=== PATIENT | female | born 1955 | race Caucasian/White ===

== ENCOUNTER 2020-07-05 09:04 | Outpatient (REF) | payer BC, SELFPAY ==
--- NOTE | ~2020-07-05 | MM_ITS ---
EXAMINATION: MM SCREENING DIGITAL BREAST TOMOSYNTHESIS, BILATERAL CLINICAL INFORMATION: Screening. Asymptomatic. The lifetime risk of breast cancer based on the Tyrer-Cuzick Model is 10%. COMPARISON: Mammography: 08/02/2018, 07/30/2018, 07/12/2017, 06/27/2016 TECHNIQUE: Digital breast tomosynthesis is performed in both the craniocaudal and mediolateral oblique views along with computer-aided detection (CAD). Synthesized 2D images are generated from the tomosynthesis. Additional right CC view is provided. FINDINGS: There are scattered areas of fibroglandular density (ACR BI-RADS breast composition Category b). There are no significant masses, abnormal calcifications, or other abnormalities. Small circumscribed nodule mid 9:00 right breast stable from prior studies. Skin contours are smooth. MM/MM tomosynthesis screening BI IMPRESSION: No mammographic evidence of malignancy. ASSESSMENT: BI-RADS 2: Benign RECOMMENDATION: Routine annual mammography screening. This patient's information was entered into a reminder system with a target due date for their next mammogram.
== END 2020-07-05 09:05 | disposition home or self-care (01) ==
LOC: HO.MAMMO 09:04
PROVIDERS: Visit Provider Internal Medicine
DX: Z12.31 Encounter for screening mammogram for malignant neoplasm of breast (principal)
CPT/HCPCS: 77063; 77067

== ENCOUNTER 2021-02-23 06:56 | Outpatient (REF) | payer MEDICARE, SELFPAY ==
[2021-02-23 11:24] LABS: Appearance Urine HAZY; Color Urine STRAW; Glucose Urine UA NEG (NEG); Leukocyte Esterase Urine 1+ (NEG); Nitrite Urine NEG (NEG); PH 5.5 (5.0-8.0); Urine Blood NEG (NEG); Urine Ketones NEG (NEG); Urine Protein NEG (NEG-TRACE)
[2021-02-23 11:27] LABS: MANUAL DIFF FLAG NO
[2021-02-23 11:29] LABS: Basophils Percent Auto 0.4 % (0-2); Eosinophils Absolute Auto 0.1 X10*3/uL (0.0-0.4); Eosinophils Percent Auto 2.6 % (0-4); Hematocrit 42.9 % (37.0-47.0); Hemoglobin 14.1 g/dl (12.0-16.0); Imm Gran Abs Auto 0.01 X10*3/uL (0.00-0.03); Imm Gran Pct Auto 0.2 % (0.0-0.4); Lymphocytes Absolute Auto 1.8 X10*3/uL (1.2-4.9); Lymphocytes Percent Auto 39.3 % (20-40); Mean Corpuscular HGB Conc 32.9 g/dl (31.0-35.0); Mean Corpuscular Hemoglobin 31.2 pg (27.0-33.0); Mean Corpuscular Volume 94.9 fL (80.0-98.0); Mean Platelet Volume 10.1 fL (9.4-12.3); Monocytes Absolute Auto 0.5 X10*3/uL (0.1-1.2); Monocytes Percent Auto 10.7 % (2-11); Neutrophils Absolute Auto 2.2 x10*3/uL (2.0-8.3); Neutrophils Percent Auto 46.8 % (45-73); Platelet Count 239 X10*3/uL (160-400); Red Blood Count 4.52 X10*6/uL (4.20-5.50); Red Cell Distribution Width 13.5 % (11.0-16.0); White Blood Count 4.7 X10*3/uL (4.8-10.8)
[2021-02-23 11:39] LABS: Bacteria Urine TRACE /LPF; RBC Urine 0 /HPF (0); Squamous Epithelial Cell Urine 2+ /LPF
[2021-02-23 12:07] LABS: Thyroid Stimulating Hormone 2.29 uIU/mL (0.32-4.0); Vitamin D 25-OH Total 26.3 ng/mL (>30)
[2021-02-23 12:16] LABS: Alanine Aminotransferase 22 U/L (0-31); Albumin Level 4.3 g/dL (3.5-5.0); Alkaline Phosphatase 91 U/L (39-117); Anion Gap 10 (12-20); Aspartate Amino Transferase 19 U/L (5-31); Bilirubin Total 0.4 mg/dL (0.0-1.0); Blood Urea Nitrogen 19 mg/dL (9-16); Calcium 9.8 mg/dL (8.4-10.2); Carbon Dioxide 27 mmol/L (22-29); Chloride 109 mmol/L (96-108); Cholesterol 245 mg/dL; Estimated Glomerular Filt Rate > 60; Glucose Fasting 82 mg/dL (60-99); HDL Cholesterol 85 mg/dL; LDL Cholesterol Calculated 150 mg/dl; Potassium 4.8 mmol/L (3.3-5.1); Sodium 141 mmol/L (135-145); Total Protein 6.9 g/dL (6.5-8.0); Triglycerides 53 mg/dL
== END 2021-02-23 06:57 | disposition home or self-care (01) ==
LOC: HO.HMGCLDS 06:56
PROVIDERS: PCP Internal Medicine; Visit Provider Internal Medicine
DX: Z00.00 Encounter for general adult medical examination without abnormal findings (principal); I10 Essential (primary) hypertension
CPT/HCPCS: 36415; 80053; 80061; 81001; 82306; 84443; 85025

== ENCOUNTER 2021-07-08 09:27 | Outpatient (REF) | payer MEDICARE, SELFPAY ==
--- NOTE | ~2021-07-08 | MM_ITS ---
EXAMINATION: MM SCREENING DIGITAL BREAST TOMOSYNTHESIS, BILATERAL CLINICAL INFORMATION: Screening. Asymptomatic. Family history breast cancer, mother. The lifetime risk of breast cancer based on the Tyrer-Cuzick Model is 10%. COMPARISON: Mammography: 07/05/2020, 08/02/2018, 07/30/2018 TECHNIQUE: Digital breast tomosynthesis is performed in both the craniocaudal and mediolateral oblique views along with computer-aided detection (CAD). Synthesized 2D images are generated from the tomosynthesis. FINDINGS: There are scattered areas of fibroglandular density (ACR BI-RADS breast composition Category b). There are no significant masses, abnormal calcifications, or other abnormalities. Parenchymal pattern is similar to prior studies. No significant changes. No developing density or architectural abnormality. MM/MM tomosynthesis screening BI IMPRESSION: No mammographic evidence of malignancy. ASSESSMENT: BI-RADS 1: Negative RECOMMENDATION: Routine annual mammography screening. This patient's information was entered into a reminder system with a target due date for their next mammogram.
== END 2021-07-08 09:28 | disposition home or self-care (01) ==
LOC: HO.MAMMO 09:27
PROVIDERS: PCP Internal Medicine; Visit Provider Internal Medicine
DX: Z12.31 Encounter for screening mammogram for malignant neoplasm of breast (principal)
CPT/HCPCS: 77063; 77067

== ENCOUNTER 2021-12-10 10:46 | Outpatient (REF) | payer MEDICARE, SELFPAY ==
[2021-12-10 14:31] LABS: Influenza A PCR NEGATIVE (Negative); Influenza B PCR NEGATIVE (Negative); Resp Syncy Virus RNA Qual PCR NEGATIVE (Negative); SARS COV2 PCR INHOUSE NEGATIVE (Negative)
== END 2021-12-10 10:47 | disposition home or self-care (01) ==
LOC: HO.LAB 10:46
PROVIDERS: Visit Provider Nurse Practitioner Acute Care
DX: R68.89 Other general symptoms and signs (principal); Z20.822 Contact with and (suspected) exposure to COVID-19
CPT/HCPCS: 0241U

== ENCOUNTER 2022-04-07 06:56 | Outpatient (REF) | payer MEDICARE, SELFPAY ==
[2022-04-07 11:43] LABS: MANUAL DIFF FLAG NO
[2022-04-07 12:04] LABS: Basophils Percent Auto 0.9 % (0-2); Eosinophils Absolute Auto 0.1 X10*3/uL (0.0-0.4); Eosinophils Percent Auto 2.6 % (0-4); Hematocrit 43.1 % (37.0-47.0); Imm Gran Abs Auto 0.01 X10*3/uL (0.00-0.03); Imm Gran Pct Auto 0.2 % (0.0-0.4); Lymphocytes Absolute Auto 1.6 X10*3/uL (1.2-4.9); Lymphocytes Percent Auto 38.5 % (20-40); Mean Corpuscular HGB Conc 32.5 g/dl (31.0-35.0); Mean Corpuscular Hemoglobin 30.4 pg (27.0-33.0); Mean Corpuscular Volume 93.5 fL (80.0-98.0); Mean Platelet Volume 10.2 fL (9.4-12.3); Monocytes Absolute Auto 0.5 X10*3/uL (0.1-1.2); Monocytes Percent Auto 10.8 % (2-11); Platelet Count 222 X10*3/uL (160-400); Red Blood Count 4.61 X10*6/uL (4.20-5.50); Red Cell Distribution Width 13.2 % (11.0-16.0); White Blood Count 4.3 X10*3/uL (4.8-10.8)
[2022-04-07 12:31] LABS: Alanine Aminotransferase 13 U/L (0-31); Albumin Level 4.2 g/dL (3.5-5.0); Alkaline Phosphatase 94 U/L (39-117); Anion Gap 12 (12-20); Aspartate Amino Transferase 18 U/L (5-31); Bilirubin Total 0.5 mg/dL (0.0-1.0); Blood Urea Nitrogen 14 mg/dL (9-16); Calcium 9.5 mg/dL (8.4-10.2); Carbon Dioxide 25 mmol/L (22-29); Chloride 108 mmol/L (96-108); Cholesterol 247 mg/dL; Estimated Glomerular Filt Rate > 60; Glucose Fasting 85 mg/dL (60-99); HDL Cholesterol 92 mg/dL; LDL Cholesterol Calculated 144 mg/dl; Potassium 4.4 mmol/L (3.3-5.1); Sodium 141 mmol/L (135-145); Total Protein 6.8 g/dL (6.5-8.0); Triglycerides 57 mg/dL
[2022-04-07 12:56] LABS: Thyroid Stimulating Hormone 2.54 uIU/mL (0.32-4.0); Vitamin D 25-OH Total 30.9 ng/mL (>30)
== END 2022-04-07 06:57 | disposition home or self-care (01) ==
LOC: HO.HMGCLDS 06:56
PROVIDERS: PCP Internal Medicine; Visit Provider Internal Medicine
DX: I10 Essential (primary) hypertension (principal); E55.9 Vitamin D deficiency, unspecified
CPT/HCPCS: 36415; 80053; 80061; 82306; 84443; 85025

== ENCOUNTER 2022-05-17 10:23 | Outpatient (REF) | payer MEDICARE, SELFPAY ==
--- NOTE | ~2022-05-17 | MM_ITS ---
EXAMINATION: MM DIAGNOSTIC DIGITAL BREAST TOMOSYNTHESIS, BILATERAL US TARGETED BREAST, RIGHT CLINICAL INFORMATION: Right breast lump. The lifetime risk of breast cancer based on the Tyrer-Cuzick Model is 9%. COMPARISON: Mammography: 07/08/2021 and studies dating back to 06/04/2015 TECHNIQUE: Digital breast tomosynthesis is performed in both the craniocaudal and mediolateral oblique views along with computer-aided detection (CAD). Synthesized 2D images are generated from the tomosynthesis. Targeted right breast ultrasound. FINDINGS: There are scattered areas of fibroglandular density (ACR BI-RADS breast composition Category b). There are no significant masses, abnormal calcifications, or other abnormalities. Targeted right breast ultrasound did not demonstrate any abnormal cystic or solid masses. No region of abnormal distal sound shadowing appreciated. No edematous change within the parenchyma. Results are discussed with the patient at time of visit. MM/MM tomosynthesis diagnostic BI IMPRESSION: There are no significant changes from prior study. No specific mammographic or ultrasound findings to suggest malignancy. ASSESSMENT: BI-RADS 1: Negative RECOMMENDATION: Routine annual mammography screening due in 12 months. This patient's information was entered into a reminder system with a target due date for their next mammogram.
== END 2022-05-17 10:24 | disposition home or self-care (01) ==
LOC: HO.MAMMO 10:23
PROVIDERS: Visit Provider Internal Medicine
DX: N63.15 Unspecified lump in the right breast, overlapping quadrants (principal)
CPT/HCPCS: 76642; 77062; 77066

== ENCOUNTER 2022-08-07 10:22 | Emergency (ER) | payer MEDICARE, SELFPAY ==
--- NOTE | ~2022-08-07 | US_ITS ---
EXAMINATION: US VENOUS ULTRASOUND WITH DOPPLER LOWER EXTREMITY, RIGHT CLINICAL INFORMATION: Pain COMPARISON: None available. TECHNIQUE: Ultrasound of the deep veins is performed from the hip to the calf with compression sonography and color and pulse Doppler assessment. Spectral analysis with color-flow imaging is performed. FINDINGS: There is normal venous compression and respiratory variation and augmented flow. The visualized common femoral vein, superficial femoral vein, profunda femoral vein, popliteal vein, and the trifurcation region shows no evidence of deep venous thrombosis. There is a 5 x 0.8 x 0.7 cm Zhou's cyst. US/US venous duplex LE RT IMPRESSION: No DVT demonstrated in the right lower extremity. Small Zhou's cyst.
--- NOTE | ~2022-08-07 | XR_ITS ---
EXAMINATION: XR KNEE, RIGHT CLINICAL INFORMATION: Pain. COMPARISON: None available. TECHNIQUE: AP, lateral, and both oblique views of the right knee. FINDINGS: Bony alignment and mineralization are normal. The lateral, medial and patellofemoral joint space compartments are well-maintained. Within the proximal right tibial diaphysis, a 2.1 x 3.2 x 1.4 cm lesion is seen. This lesion appears lucent, with sharp transition zone and central coarse ovoid calcification. No periosteal reaction is seen. There is no fracture, dislocation or joint effusion. No foreign body is noted. XR/XR knee RT 3V IMPRESSION: A mixed lytic and sclerotic lesion is noted of the proximal right tibial diaphysis, with dimensions as detailed above. This shows a sharp transition zone, suggesting a benign etiology. Differential considerations include an enchondroma and bone infarction. Malignant etiologies, such as a chondrosarcoma or metastasis, are less likely. Given the presentation with pain, consider MRI evaluation.
[2022-08-07 11:05] VITALS: BP 163/88; PULSE 88; RESP 18; TEMP 36.3; O2SAT 97; BMI 23.5
--- NOTE | 2022-08-07 11:07 | ED_ITS ---
HPI - General Adult General Chief complaint: Extremity Injury, Lower Stated complaint: R knee pain Time Seen by Provider: 08/07/22 12:31 Source: patient Mode of arrival: ambulatory Limitations: no limitations History of Present Illness HPI narrative: This is a 67-year-old female presenting with complaints of right knee pain for the past few weeks worsening, she reports that today the pain was intolerable and she had an episode of severe pain greater than 10/10. She reports that it made her sit down because the pain was so bad. She reports pain to the anterior and posterior aspects of knee, she does report recent gardening. Pain is worse with movement and weight-bearing activities better at rest. Patient denies chest pain, shortness of breath, nausea, vomiting, abdominal pain, headache, vision changes, dizziness, fevers, chills, night sweats, unintentional weight gain or weight loss, excessive fatigue, myalgias. Related Data Home Medications Medication Instructions Recorded Confirmed alprazolam 0.5 mg tablet 0.5 mg PO DAILY PRN 12/10/21 amlodipine 5 mg tablet 5 mg PO DAILY 12/10/21 estradiol 0.01% (0.1 mg/gram) 1 g vaginal 2XW 12/10/21 vaginal cream Previous Rx's Medication Instructions Recorded amoxicillin 500 mg capsule 500 mg PO BID #14 caps 12/10/21 carbamide peroxide 6.5 % ear drops 5 drp otic (ears) DAILY 4 days #15 12/10/21 (Debrox) mL ondansetron 4 mg disintegrating 4 mg PO Q8H PRN nausea and 12/10/21 tablet vomiting #20 tabs ketorolac 10 mg tablet 10 mg PO TID PRN pain 5 days #15 08/07/22 tabs prednisone 20 mg tablet 40 mg PO DAILY 5 days #10 tabs 08/07/22 Allergies Allergy/AdvReac Type Severity Reaction Status Date / Time No Known Allergies Allergy Verified 08/07/22 11:09 Review of Systems Review of Systems: Constitutional : No Weight loss, No Fever, No Chills, No Fatigue, No Malaise ENT/Mouth : No sore throat, No Rhinorrhea Eyes: No Eye Pain, No Swelling, No Redness Cardiovascular : No Chest Pain, No SOB, No Dyspnea on Exertion, No Orthopnea, No Edema, No Palpitations Respiratory : No Cough, No Sputum, No Wheezing Gastrointestinal : No Nausea, No Vomiting, No Diarrhea, No Constipation, No abdominal Pain, No Hematochezia, No Melena Genitourinary : No Dysuria, No Urinary Frequency, No Hematuria, Musculoskeletal : + joint pain, No Myalgias, + Joint Swelling Skin : No Skin Lesions, No rash Neuro : No Weakness, No Numbness, No Dizziness, No Headache Psych : No Anxiety/Panic, No Depression All other systems reviewed and are negative Yes all other systems are reviewed and are negative [facility] Past Medical History Attestation statement: The following information was validated with the patient. Source: old records reviewed and nursing notes reviewed Social History Social History Advance Directives: No Advance Directives Information Provided: No Physical Exam ED Vital Signs: Vital Signs - 24 hr 08/07/22 11:05 Temperature 97.3 F Pulse Rate 88 Respiratory Rate 18 Blood Pressure 163/88 H Pulse Oximetry 97 Oxygen Delivery Method Room Air BMI result Body Mass Index 23.5 vss Appearance: Alert.? Oriented X3.? No acute distress.? Head: Normocephalic, atraumatic, no step-offs or deformities Eyes: Pupils equal, round and reactive to light.? Neck: Normal inspection.? Neck supple.? CVS: Normal heart rate and rhythm.? Pulses normal.? Respiratory: No respiratory distress.? Breath sounds normal.? Abdomen: Soft and nontender.? Skin: Skin warm and dry.? Normal skin color.? Normal skin turgor.? Extremities: No lower extremity edema.? No calf ttp. 5/5 strength to bilateral upper and lower extremities 2+ DP, AT, PT, pulses equal and b/l. Normal ROM to b/l knee slight discomfort with ROM of R. knee. Possible small effusion to R. knee. Normal L knee. Normal sensation to b/l LE. Negative aquiles. + R. Kristine sign, negative valgus, varus, anterior and posterior drawer on the right. Normal specialty test on the left. Neuro: Oriented X 3.? No motor deficit.? No sensory deficit. CN 2-12 intact Course Course Course Narrative: RME- 67 year old female presents for evaluation of right knee pain. Patient reports her symptoms started about 1 week ago. Denies any specific injury. She does state that just prior to the onset of her symptoms she was ?gardening, so stepping onto the shovel to edge the garden. ? She reports her pain is worse behind the right knee and worse with twisting motions.. Plan for x-ray and ultrasound of the right lower extremity Reevaluation(s) Reevaluation #1: x-ray with a mixed lytic and sclerotic lesion is noted in the proximal right tibial diaphysis. Shows a sharp transition zone suggesting a benign etiology. Differential considerations include an Ng chondroma and bone infarction although unlikely. Malignant etiologies such as costosarcoma and metastasis or less likely. Recommend MRI. Discussed this case with Ortho, will discharge with knee immobilizer, crutches, Toradol. Ultrasound pending. Time: 13:13 Medical Decision Making Medical Decision Making [facility] Narrative: 67-year-old female presents with atraumatic right knee pain for the past few days worsening today. Physical exam significant for No lower extremity edema.? No calf ttp. 5/5 strength to bilateral upper and lower extremities 2+ DP, AT, PT, pulses equal and b/l. Normal ROM to b/l knee slight discomfort with ROM of R. knee. Possible small effusion to R. knee. Normal L knee. Normal sensation to b/l LE. Negative aquiles. + R. Kristine sign, negative valgus, varus, anterior and posterior drawer on the right. Normal specialty test on the left. likely small right effusion possible injury to meniscus based off of specialty test. Unlikely ACL, PCL, MCL tear. Unlikely fracture, dislocation. No signs of neurovascular compromise or threatened limb. Plan x-ray, ultrasound ordered from triage. Differential Diagnosis Differential Diagnoses: The differential diagnosis associated with the presentation includes likely small right effusion possible injury to meniscus based off of specialty test. Unlikely ACL, PCL, MCL tear. Unlikely fracture, dislocation. No signs of neurovascular compromise or threatened limb. 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 This shows a sharp transition zone, suggesting a benign etiology. Differential considerations include an enchondroma and bone infarction. Malignant etio) and Ultrasound Radiology Impression Discussion of test interpretation with radiology: I have reviewed the radiologist's reading. Core Measures AMI core measures followed: Yes Measure exclusions: not indicated Critical Care Time Critical Care Time Critical Care Time: Yes Total Critical Care Time: 35 Attestation: I attest to this time spent taking care of the patient, obtaining history, physical, reviewing labs, imaging, speaking to my attending, speaking to specialist. Discharge Plan Discharge Clinical Impression: Knee pain, right, Zhou cyst Patient Disposition: Home, Self-Care Instructions: Knee Pain (ED) Additional Instructions: Take your medications as prescribed. If you were prescribed antibiotics today, it is important that you take your medication to their entirety, do not skip any doses, do not finish them early. Follow-up with your primary care provider this week. Please follow-up with the orthopedic team as soon as possible. Information below. Return to the emergency department with new or worsening symptoms. Such as fevers, chills, chest pain, shortness of breath, nausea, vomiting, dizziness, headache, vision changes, lethargy In case of emergency call 911 Toradol has been sent to your pharmacy, you tolerated this well in the department. Please take this as prescribed do not take this with ibuprofen, or other NSAIDs, do not mix this with alcohol. Side effects of this medication including increased risk for bleeding and possible kidney injury. XR/XR knee RT 3V IMPRESSION: A mixed lytic and sclerotic lesion is noted of the proximal right tibial diaphysis, with dimensions as detailed above. This shows a sharp transition zone, suggesting a benign etiology. Differential considerations include an enchondroma and bone infarction. Malignant etiologies, such as a chondrosarcoma or metastasis, are less likely. Given the presentation with pain, consider MRI evaluation. Prescriptions: New ketorolac 10 mg tablet 10 mg PO TID PRN (Reason: pain) 5 Days Qty: 15 0RF prednisone 20 mg tablet 40 mg PO DAILY 5 Days Qty: 10 0RF No Action amlodipine 5 mg tablet 5 mg PO DAILY estradiol 0.01 % (0.1 mg/gram) cream 1 g vaginal 2XW alprazolam 0.5 mg tablet 0.5 mg PO DAILY PRN amoxicillin 500 mg capsule 500 mg PO BID Qty: 14 0RF Debrox 6.5 % drops 5 drp otic (ears) DAILY 4 Days Qty: 15 0RF ondansetron 4 mg tablet,disintegrating 4 mg PO Q8H PRN (Reason: nausea and vomiting) Qty: 20 0RF Referrals: [facility] [facility] [Provider Group] - 1 day David Sousa DO [Primary Care Provider] - 2 days Stand Alone Forms: Work/School Release
[2022-08-07] MEDS: Ketorolac Tromethamine 15 MG/ML VIAL 30 MG IM (13:16)
== END 2022-08-07 16:21 | disposition home or self-care (01) ==
PROVIDERS: Emergency Provider Student in an Organized Health Care Education/Training Program; PCP Internal Medicine
DX: M71.21 Synovial cyst of popliteal space [Baker], right knee (principal); R60.0 Localized edema; M25.561 Pain in right knee; Z79.899 Other long term (current) drug therapy
CPT/HCPCS: 73562; 93971; 96372; 99284; J1885

== ENCOUNTER 2022-09-15 06:10 | Outpatient (REF) | payer MEDICARE, SELFPAY ==
--- NOTE | ~2022-09-15 | XR_ITS ---
EXAMINATION: XR KNEE AP STANDING. Right knee CLINICAL INFORMATION: Bilateral knee pain COMPARISON: None available. TECHNIQUE: AP bilateral standing view of the knees was obtained. Right knee sunrise view FINDINGS: Bilateral knee: There is loss of medial compartment joint space in both knees. Mild lateral compartment periarticular spurring seen in the left knee. No bony erosive changes, loose bodies or joint effusion suspected. There is a mixed attenuation lesion in the right proximal tibia. XR/XR knee RT 1V IMPRESSION: 1. Mild degenerative changes medial compartment in both knees. 2. Mild periarticular spurring lateral compartment left knee. 3. Mixed attenuation lesion right proximal tibia. If patient has pain in right proximal tibia CT or MRI can be obtained.
--- NOTE | ~2022-09-15 | XR_ITS ---
EXAMINATION: XR KNEE AP STANDING. Right knee CLINICAL INFORMATION: Bilateral knee pain COMPARISON: None available. TECHNIQUE: AP bilateral standing view of the knees was obtained. Right knee sunrise view FINDINGS: Bilateral knee: There is loss of medial compartment joint space in both knees. Mild lateral compartment periarticular spurring seen in the left knee. No bony erosive changes, loose bodies or joint effusion suspected. There is a mixed attenuation lesion in the right proximal tibia. XR/XR knee standing BI IMPRESSION: 1. Mild degenerative changes medial compartment in both knees. 2. Mild periarticular spurring lateral compartment left knee. 3. Mixed attenuation lesion right proximal tibia. If patient has pain in right proximal tibia CT or MRI can be obtained.
== END 2022-09-15 06:11 | disposition home or self-care (01) ==
LOC: HO.HOSX 06:10
PROVIDERS: Visit Provider Physician Assistant
DX: M17.11 Unilateral primary osteoarthritis, right knee (principal); R60.9 Edema, unspecified; M89.9 Disorder of bone, unspecified
CPT/HCPCS: 73560; 73565; 99202

== ENCOUNTER 2022-09-15 14:56 | Outpatient (AMB) | payer MEDICARE, SELFPAY ==
--- NOTE | 2022-09-15 15:00 | A.OFFVIS_ITS ---
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 Patient reports doing some garden work and being sore after being on her knees, she started to go down the stairs to her seller and she felt a sharp pain in her whole right knee. She states when she bear weight on her right knee she felt a sharp pain and tried to turn her body, when shed lost her balance and feel sitting on the step. Pain is more on the medial aspect of the knee per patient. 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 The patient presented to the ED on 08/07/2022 status post right knee weakness and severe pain. X-rays of the right knee were obtained. She reports she was doing gardening work on her knees and then was going down the stairs to the cellar when she felt a sharp pain on the whole right knee. She states she did not feel the knee felt right so she twisted to go back up the stairs. She claims upon bearing weight she lost her balance and had to sit down on the step. She confirms some popping since 02/2022. She claims her pain is more on the medial aspect of the right knee. She states she is not longer using the crutches. She confirms taking 3 ibuprofen at bedtime, which gave her relief. She reports edema in the right knee. Patient is accompanied by a family member while in the office today. [facility] Medical History (Updated 09/15/22 @ 15:48 by Marina Zarate) History of high blood pressure Social History (Updated 09/15/22 @ 15:28 by Calr Nayak) Alcohol intake: current Alcohol intake frequency: a few times a week Patient Tobacco Use Status: Former Tobacco user Current occupational status: retired Review of Systems Const All systems reviewed & are unremarkable except as noted in HPI and below Physical Exam Vital Signs: BMI result Body Mass Index 23.5 Const General: cooperative and no acute distress Orientation/consciousness: patient oriented x3 Resp Effort & Inspection: normal respiratory effort and able to speak in complete sentences Cardio Peripheral pulses: Peripheral pulses 2+ throughout Skin General skin exam: no rashes or lesions noted Neuro General: patient oriented x3 Extrem Other: Right knee: Normal to inspection. No ecchymosis, erythema, or joint effusion. No tenderness to palpation to the medial or lateral joint lines. Full knee extension and flexion. Crepitus felt with ROM. Negative Chente's. NVI. Assessment & Plan Assessment & Plan (1) Lesion of bone of knee: Code(s): M89.9 - Disorder of bone, unspecified (2) Osteoarthritis of right knee: Code(s): M17.11 - Unilateral primary osteoarthritis, right knee Plan Ms. Ramos is a 67-year-old female who presents in the office today, as a new patient, for an evaluation of right knee pain. The patient presented to the ED on 08/07/2022 status post right knee weakness and severe pain. X-rays of the right knee were obtained. She reports she was doing gardening work on her knees and then was going down the stairs to the cellar when she felt a sharp pain on the whole right knee. She states she did not feel the knee felt right so she twisted to go back up the stairs. She claims upon bearing weight she lost her balance and had to sit down on the step. She confirms some popping since 02/2022. She claims her pain is more on the medial aspect of the right knee. She states she is not longer using the crutches. She confirms taking 3 ibuprofen at bedtime, which gave her relief. She reports edema in the right knee. Patient is accompanied by a family member while in the office today. The patient will be referred for a stat MRI of the right knee due to an incidental finding of bone lesions. Which MRI was recommended by radiology. She will call the office after the MRI is obtained. I discussed the role of cortisone injection but due to her having an MRI ordered we have agreed to defer. Follow up will be after the MRI is obtained, or sooner if needed. X-rays of the right knee which were obtained while in the office today and were reviewed by me, Gregoria Zaragoza PA-C, revealed right knee osteoarthritis. X-rays of the right knee, obtained on 08/07/2022, revealed: A mixed lytic and sclerotic lesion is noted of the proximal right tibial diaphysis, with dimensions as detailed above. This shows a sharp transition zone, suggesting a benign etiology. Differential considerations include an enchondroma and bone infarction. Malignant etiologies, such as a chondrosarcoma or metastasis, are less likely. Given the presentation with pain, consider MRI evaluation. Orders: Orders XR knee RT 1V Today M25.569 - Pain in unspecified knee XR knee standing BI Today M25.569 - Pain in unspecified knee MR knee RT wo con Today M89.9 - Disorder of bone, unspecified Patient Instructions: Scribed for Gregoria Zaragoza PA-C by Marina Zarate medical cost consultant, on 09/15/2022 at 3:00 pm, EST. Your attestation Coding Level of Care Code New Pt Level 4 (54509) Diagnoses Lesion of bone of knee M89.9 Osteoarthritis of right knee M17.11
[2022-09-15 15:28] VITALS: BMI 23.5
== END 2022-09-15 15:55 | disposition home or self-care (01) ==
PROVIDERS: PCP Internal Medicine; Visit Provider Physician Assistant
DX: M17.11 Unilateral primary osteoarthritis, right knee (principal); M89.9 Disorder of bone, unspecified
CPT/HCPCS: 99204

== ENCOUNTER 2022-09-29 15:30 | Outpatient (REF) | payer MEDICARE, SELFPAY ==
--- NOTE | ~2022-09-29 | MR_ITS ---
EXAMINATION: MR KNEE WITHOUT CONTRAST, RIGHT CLINICAL INFORMATION: Disorder of bone. Bone lesion in the proximal right tibial diaphysis. COMPARISON: Radiographs performed 09/15/2022 TECHNIQUE: MRI of the knee without contrast was performed using routine sequences on a high-field scanner. FINDINGS: MENISCI: Medial Meniscus: Complex tear at the posterior horn of the medial meniscus extending to the region of the posterior root. Lateral Meniscus: Intact LIGAMENTS: Cruciate: Intact Collateral: Intact EXTENSOR MECHANISM: Intact ARTICULAR CARTILAGE/BONE: Patellofemoral Compartment: There is full-thickness cartilage loss along the lateral facet of the patella. Cartilage loss also seen along the lateral aspect of the trochlea with subchondral cyst formation and mild marrow edema. Marginal osteophytes are present. Medial Compartment: Diffuse chondral thinning which is moderate along the weightbearing portion of the medial femoral condyle. There is very mild marrow edema along the periphery of the medial tibial plateau. Marginal osteophytes present. There is a well marginated osseous lesion in the proximal tibial metaphysis in the medullary cavity measuring 2.3 x 2.4 x 1.3 cm. This has a rim of increased T2 signal. This is somewhat intermediate in signal on T1-weighted imaging. Centrally the signal is low on both T1 and T2-weighted imaging. The appearance is consistent with a bone infarct. Lateral Compartment: Mild chondral thinning with no full thickness defect. No bone marrow signal change. Marginal osteophytes are present. JOINT FLUID AND BURSAE: Small joint effusion. Zhou's cyst present. MR/MR knee RT wo con IMPRESSION: 1. Complex tear of the posterior horn of the medial meniscus extending to the region of the posterior root. 2. 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 This corresponds with the finding on prior radiograph. 3. Tricompartmental degenerative changes of the knee with varying degrees of chondral thinning and osteophyte formation. Full-thickness cartilage loss at the lateral facet of the patella and lateral trochlea.. 4. Small joint effusion and Zhou's cyst.
== END 2022-09-29 15:31 | disposition home or self-care (01) ==
LOC: HO.MRI 15:30
PROVIDERS: PCP Internal Medicine; Visit Provider Physician Assistant
DX: M89.9 Disorder of bone, unspecified (principal)
CPT/HCPCS: 73721

== ENCOUNTER 2022-10-03 13:13 | Outpatient (AMB) | payer MEDICARE, SELFPAY ==
--- NOTE | 2022-10-03 13:16 | MHC.OFFVIS ---
Intake Vital Signs 10/03/22 13:18 Height 5 ft 7 in Weight 150 lb BMI 23.5 Intake Visit Reasons: MRI Review - Right Knee Intake Note: Cristal is a 67 year old female who presents today for a MRI review for her right knee. Patient reports noticing some swelling in her knee. She states that her pain is off and on. Allergies No Known Allergies Allergy (Verified 09/15/22 15:26) HPI MRI Review - Right Knee HPI Details 67-year-old female who presents in the office today for a follow up of right knee lesion and pain, with review of her MRI. The patient reports noticing some edema in the right knee. She confirms her pain is intermittent. [facility] Medical History History of high blood pressure Social History Alcohol intake: current Alcohol intake frequency: a few times a week Patient Tobacco Use Status: Former Tobacco user Current occupational status: retired Review of Systems Const All systems reviewed & are unremarkable except as noted in HPI and below Physical Exam Vital Signs: BMI result Body Mass Index 23.5 Const General: cooperative, healthy appearing and no acute distress Resp Effort & Inspection: normal respiratory effort and able to speak in complete sentences Cardio Rate: regular rate Peripheral pulses: Peripheral pulses 2+ throughout GI Palpation (GI): Soft to palpation Skin Lesions: no lesions Rashes: no rashes Extrem Other: Right knee: Mild to moderated effusion. Slight tenderness to palpation medial and lateral joint lines. ROM is 0-110 degrees. NVI. Office Procedures Joint Injection/Drain Joint Injection/Drain Primary Site: right knee Prep: site was prepped using aseptic technique, ethochloride spray was applied and injection warnings given Injected: 80 mg of, DepoMedrol, with 8 mL of (2% plain lido ) and in the joint Approach Used: anterolateral Procedure: The patient tolerated the procedure well, but had some pain with the injection and there was some relief with the local anesthesia Coding 62063 - Large joint Procedure code (CPT) selection complete Results Reviewed Results Reviewed: 10/03/22 13:28 Lidocaine HCl 2 % MPF [Xylocaine 2 % MPF] 5 ml .ROUTE .STK-MED ONE methylPREDNISolone acetate [DEPO-MedroL] 80 mg .ROUTE .STK-MED ONE Assessment & Plan Assessment & Plan (1) Osteoarthritis of right knee: Code(s): M17.11 - Unilateral primary osteoarthritis, right knee Plan Ms. Ramos is a 67-year-old female who presents in the office today for a follow up of right knee lesion and pain, with review of her MRI. The patient reports noticing some edema in the right knee. She confirms her pain is intermittent. The patient was offered a cortisone injection in the right knee with 80 mg of DepoMedrol. The patient was explained the risk, benefits, and alternatives to receiving this injection. After receiving consent for the injection, the patient had the procedure done while in office today. The patient tolerated the procedure well with no complications. I offered to drain the right knee due to effusion in the office today, at this time she would like to hold off. She was placed in an SHARONA wrap, off the shelf, while in the office today. I suggested the use of a brace, however, she states she has been trying them but the knee feels better out of the brace. I sent a prescription for diclofenac 75 mg PO BID PRN to the pharmacy. MRI revealed a benign bone infarct. She can call the office to cancel her appointment should she feel better. Follow up will be in 4-6 weeks, or sooner if needed. MRI of the right knee, obtained on 09/29/2022, revealed: 1. Complex tear of the posterior horn of the medial meniscus extending to the region of the posterior root. 2. 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 This corresponds with the finding on prior radiograph. 3. Tricompartmental degenerative changes of the knee with varying degrees of chondral thinning and osteophyte formation. Full-thickness cartilage loss at the lateral facet of the patella and lateral trochlea.. 4. Small joint effusion and Zhou's cyst. Medications: New diclofenac sodium 75 mg PO BID PRN 60 tabs 0RF pain Patient Instructions: Scribed for Gregoria Zaragoza PA-C by yoselyn Jon scribe, on 10/03/2022 at 1:15 pm, EST. Coding Level of Care Code Est Pt Level 3 (45230) Diagnoses Osteoarthritis of right knee M17.11 CPT Codes Coding - 37948 Large joint: 95486 - Large joint ([id number])
[2022-10-03 13:18] VITALS: BMI 23.5
== END 2022-10-03 15:19 | disposition home or self-care (01) ==
PROVIDERS: PCP Internal Medicine; Visit Provider Physician Assistant
DX: M17.11 Unilateral primary osteoarthritis, right knee (principal); S83.231A Complex tear of medial meniscus, current injury, right knee, initial encounter
CPT/HCPCS: 20610; 99213

== ENCOUNTER → 2022-10-03 13:13 | Outpatient (BNVA) | payer MEDICARE, SELFPAY | PROVIDERS: PCP Internal Medicine; Visit Provider Physician Assistant | DX: M17.11 Unilateral primary osteoarthritis, right knee (principal) | CPT/HCPCS: 20610; 99212; J1040 ==

== ENCOUNTER 2023-04-13 07:35 | Outpatient (REF) | payer MEDICARE, SELFPAY ==
[2023-04-13 10:14] LABS: MANUAL DIFF FLAG NO
[2023-04-13 10:26] LABS: Basophils Percent Auto 0.3 % (0-2); Eosinophils Absolute Auto 0.1 X10*3/uL (0.0-0.4); Hematocrit 40.6 % (37.0-47.0); Hemoglobin 13.8 g/dl (12.0-16.0); Imm Gran Abs Auto 0.03 X10*3/uL (0.00-0.03); Imm Gran Pct Auto 0.5 % (0.0-0.4); Lymphocytes Absolute Auto 1.8 X10*3/uL (1.2-4.9); Lymphocytes Percent Auto 29.9 % (20-40); Mean Corpuscular Hemoglobin 31.5 pg (27.0-33.0); Mean Corpuscular Volume 92.7 fL (80.0-98.0); Monocytes Absolute Auto 0.7 X10*3/uL (0.1-1.2); Monocytes Percent Auto 11.1 % (2-11); Neutrophils Absolute Auto 3.3 x10*3/uL (2.0-8.3); Neutrophils Percent Auto 56.2 % (45-73); Platelet Count 222 X10*3/uL (160-400); Red Blood Count 4.38 X10*6/uL (4.20-5.50)
[2023-04-13 11:09] LABS: Alanine Aminotransferase 15 U/L (0-31); Alkaline Phosphatase 93 U/L (39-117); Anion Gap 11 (12-20); Aspartate Amino Transferase 18 U/L (5-31); Bilirubin Total 0.4 mg/dL (0.0-1.0); Blood Urea Nitrogen 15 mg/dL (9-16); C Reactive Protein 1.64 mg/dL (< or = 0.50); Calcium 9.3 mg/dL (8.4-10.2); Carbon Dioxide 26 mmol/L (22-29); Chloride 110 mmol/L (96-108); Cholesterol 218 mg/dL (<200); Estimated Glomerular Filt Rate > 60; Glucose Fasting 92 mg/dL (60-99); HDL Cholesterol 74 mg/dL (>40); LDL Cholesterol Calculated 134 mg/dL (<100); Potassium 4.5 mmol/L (3.3-5.1); Sodium 142 mmol/L (135-145); Triglycerides 52 mg/dL (<150)
[2023-04-13 11:18] LABS: Erythrocyte Sedimentation Rate 14 MM/HR (0-20)
[2023-04-13 11:26] LABS: Thyroid Stimulating Hormone 2.18 uIU/mL (0.32-4.0); Vitamin D 25-OH Total 32.6 ng/mL (>30)
== END 2023-04-13 07:36 | disposition home or self-care (01) ==
LOC: HO.HMGCLDS 07:35
PROVIDERS: PCP Internal Medicine; Visit Provider Internal Medicine
DX: Z00.00 Encounter for general adult medical examination without abnormal findings (principal); I10 Essential (primary) hypertension; E55.9 Vitamin D deficiency, unspecified
CPT/HCPCS: 36415; 80053; 80061; 82306; 82550; 84443; 85025; 85652; 86140

== ENCOUNTER 2023-05-30 08:41 | Outpatient (REF) | payer MEDICARE, SELFPAY | END 2023-05-30 08:42 | disposition home or self-care (01) | LOC: HO.MAMMO 08:41 | PROVIDERS: PCP Internal Medicine; Visit Provider Internal Medicine | DX: Z12.31 Encounter for screening mammogram for malignant neoplasm of breast (principal) | CPT/HCPCS: 77063; 77067 ==

== ENCOUNTER → 2023-05-30 08:45 | Outpatient (BNV) | payer MEDICARE, SELFPAY | PROVIDERS: PCP Internal Medicine; Visit Provider Radiology Diagnostic Radiology | DX: Z12.31 Encounter for screening mammogram for malignant neoplasm of breast (principal) | CPT/HCPCS: 77063; 77067 ==

== ENCOUNTER 2023-10-09 09:04 | Outpatient (REF) | payer MEDICARE, SELFPAY ==
--- NOTE | ~2023-10-09 | MM_ITS ---
EXAMINATION: BONE DENSITOMETRY CLINICAL INDICATION: Menopausal state. COMPARISON: This is the patient's baseline examination. TECHNIQUE: Using a NanoVasc DXA System (software version: 13.1) manufactured by [employer], dual-energy x-ray absorptiometry was performed of the lumbar spine and left hip. The images are of good technical quality. Summary results are attached. FINDINGS: LEFT FEMUR, NECK: BMD 0.864 g/cm2, Z-score 0.2, T-score -1.3, osteopenia. LEFT FEMUR, TOTAL: BMD 0.831 g/cm2, Z-score -0.2, T-score -1.4, osteopenia. AP SPINE L1-L4: BMD 0.794 g/cm2, Z-score -1.8, T-score -3.2, osteoporosis. IDENTIFIED RISK FACTORS: Menopause. HISTORY OF FRACTURE: None listed. MEDICATIONS: None listed. MM/XR DEXA axial skeleton IMPRESSION: 1. DIAGNOSIS: Osteoporosis based on the lowest T-score value of -3.2 in the lumbar spine applying World Health Organization criteria. 2. 10-YEAR FRACTURE RISK PREDICTION, FRAX: According to the guidelines, FRAX calculation should only be performed on patients in the osteopenia bone density category. Therefore, FRAX was not performed on this patient. 3. Treatment Recommendations: NOF guidelines recommend consideration for treatment in postmenopausal women and men age 50 and older presenting with the following: -A hip or vertebral (clinical or morphometric) fracture. -T-score less than or equal to -2.5 at the femoral neck or spine after appropriate evaluation to exclude secondary causes. -Low bone mass at the hip or spine and a 10-year fracture probability by FRAX of greater than or equal to 3% for hip fracture or greater than or equal to 20% for major osteoporotic fracture based on the [place] adapted WHO algorithm. 4. Other Recommendations: All treatment decisions require clinical judgment and consideration of individual patient factors, including patient preferences, comorbidities, previous drug use, risk factors not captured in the FRAX model (e.g. frailty, falls, vitamin D deficiency, increased bone turnover, interval significant decline in bone density) and possible under or overestimation of fracture risk by FRAX. Additional medical evaluation for secondary cause of low bone mineral density may be appropriate. FUTURE SCAN RECOMMENDATION: People with diagnosed cases of osteoporosis or at high risk for fracture should have regular bone mineral density tests. For patients eligible for Medicare, routine testing is allowed once every 2 years. The testing frequency can be increased to one year for patients who have rapidly progressing disease, those who are receiving or discontinuing medical therapy to restore bone mass, or have additional risk factors. Electronically signed by: Wesley Garcia MD 10/17/2023 08:51 AM EDT
== END 2023-10-09 09:05 | disposition home or self-care (01) ==
LOC: HO.MAMMO 09:04
PROVIDERS: PCP Internal Medicine; Visit Provider Nurse Practitioner Adult Health
DX: Z13.820 Encounter for screening for osteoporosis (principal); Z78.0 Asymptomatic menopausal state
CPT/HCPCS: 77080

== ENCOUNTER 2024-02-11 08:25 | Outpatient (AMB) | payer MEDICARE, SELFPAY ==
--- NOTE | 2024-02-11 08:38 | A.OFFVIS_ITS ---
Intake Visit Reasons: Inj-right knee inj-last one 10/03/22 Intake Note: Cristal is a 69 year old female who presents today for a repeat injection for her right knee, last injection 10/03/22. Patient states that her last injection gave her relief and would like to repeat. Allergies No Known Allergies Allergy (Verified 02/11/24 08:41) HPI HPI Inj-right knee inj-last one 10/03/22: Details: 69-year-old female who presents in the office today for a follow-up of right knee pain. I last saw the patient in the office on 10/03/22, when I offered to drain the right knee due to effusion; however, the patient declined at that time. She was placed in an SHARONA wrap and was prescribed diclofenac 75 mg PO BID PRN for pain relief. While in the office today, the patient reports right knee pain. Her last cortisone injection in the right knee provided her with relief. She would like to have a repeat injection today. [facility] Medical History History of high blood pressure Social History Alcohol intake: current Alcohol intake frequency: a few times a week Patient Tobacco Use Status: Former Tobacco user Current occupational status: retired Review of Systems Const All systems reviewed & are unremarkable except as noted in HPI and below Physical Exam Const General: cooperative, healthy appearing and no acute distress Resp Effort & Inspection: normal respiratory effort and able to speak in complete sentences Cardio Rate: regular rate Peripheral pulses: Peripheral pulses 2+ throughout GI Palpation (GI): Soft to palpation Skin Lesions: no lesions Rashes: no rashes Extrem Other: Right knee: Mild to moderated effusion. Slight tenderness to palpation medial and lateral joint lines. ROM is 0-110 degrees. NVI. Office Procedures AMB Joint Injection/Aspiration Joint Injection/Aspiration Primary Site: right knee Prep: site was prepped using aseptic technique, ethochloride spray was applied and injection warnings given Injected: 80 mg of, DepoMedrol, with 8 mL of (2% plain lido ) and in the joint Approach Used: anterolateral Procedure: The patient tolerated the procedure well, but had some pain with the injection and there was some relief with the local anesthesia Coding 11708 - Large joint Procedure code (CPT) selection complete Assessment & Plan Assessment & Plan (1) Osteoarthritis of right knee: Code(s): M17.11 - Unilateral primary osteoarthritis, right knee Category: Medical Plan Ms. Ramos is a 69-year-old female who presents in the office today for a follow-up of right knee pain. I last saw the patient in the office on 10/03/22, when I offered to drain the right knee due to effusion; however, the patient declined at that time. She was placed in an SHARONA wrap and was prescribed diclofenac 75 mg PO BID PRN for pain relief. While in the office today, the patient reports right knee pain. Her last cortis one injection in the right knee provided her with relief. She would like to have a repeat injection today. The patient was offered a cortisone injection in the right knee with 80 mg of Depo-Medrol. The patient was explained the risks, benefits, and alternatives to receiving this injection. After receiving consent for the injection, the patient had the procedure done while in the office today. The patient tolerated the procedure well with no complication. Follow-up will be PRN, or sooner if needed. X-rays of the right knee, which were obtained while in the office today and were reviewed by me, Gregoria Zaragoza PA-C, revealed: Redemonstration of osteoarthritis slightly progressed from the previous x-rays. Orders: Orders XR knee RT 3V 02/11/24 M25.569 - Pain in unspecified knee XR knee LT 1V 02/11/24 M25.569 - Pain in unspecified knee Patient Instructions: Scribed by Maru Govea medical case manager, for Gregoria Zaragoza PA-C on 02/11/24 at 8:45 am EST. Coding Level of Care Code Est Pt Level 3 (75835) Diagnoses Osteoarthritis of right knee M17.11 CPT Codes Coding - 27559 Large joint: 01584 - Large joint ([id number])
== END 2024-02-11 09:02 | disposition home or self-care (01) ==
PROVIDERS: PCP Internal Medicine; Visit Provider Physician Assistant
DX: M17.11 Unilateral primary osteoarthritis, right knee (principal)
CPT/HCPCS: 20610; 99213

== ENCOUNTER 2024-02-11 15:20 | Outpatient (REF) | payer MEDICARE, SELFPAY | END 2024-02-11 15:21 | disposition home or self-care (01) | LOC: HO.HOSX 15:20 | PROVIDERS: Visit Provider Physician Assistant | DX: M25.561 Pain in right knee (principal); M25.562 Pain in left knee; M17.11 Unilateral primary osteoarthritis, right knee | CPT/HCPCS: 20610; 73560; 73562; 99212; J1010; J2003 ==

== ENCOUNTER 2024-04-22 11:25 | Outpatient (AMB) | payer MEDICARE, SELFPAY ==
--- NOTE | 2024-04-22 11:25 | A.OFFPC_ITS ---
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 Allergies No Known Allergies Allergy (Verified 04/22/24 11:31) [facility] Medical History (Updated 04/22/24 @ 13:21 by Williams Cosme MD) Obesity (BMI 30.0-34.9) Osteoporosis Essential hypertension History of high blood pressure Social History Alcohol intake: current Alcohol intake frequency: a few times a week Patient Tobacco Use Status: Former Tobacco user Current occupational status: retired Physical exam (Primary Care) Vital Signs: Last Vital Signs Temp 97.3 F 04/22/24 11:37 Pulse 78 04/22/24 11:37 BP 130/72 04/22/24 11:37 Pulse Ox 99 04/22/24 11:37 BMI result Body Mass Index 27.7 Tobacco/Smoking Status: Tobacco use Status Patient Tobacco Use Status Former Tobacco user 04/22/24 11:26 Coding Level of Care Code New Pt Level 4 (03054) Complex EM visit Add On G2211 Diagnoses Essential hypertension I10 Low back pain M54.50 Osteoporosis M81.0 Obesity (BMI 30.0-34.9) E66.811 Annual physical exam Z00.00 Assessment & Plan Assessment & Plan (1) Essential hypertension: Code(s): I10 - Essential (primary) hypertension Category: Medical Plan: BP is in range. Continue medications at same dosage. (2) Low back pain: Code(s): M54.50 - Low back pain, unspecified Plan: Physical therapy has been ordered. Mostly muscular in etiology. (3) Osteoporosis: Code(s): M81.0 - Age-related osteoporosis without current pathological fracture Category: Medical Plan: Patient has seen an sand drier. Vitamin D and Calcium supplementation (4) Obesity (BMI 30.0-34.9): Code(s): E66.811 - Obesity, class 1 Category: Medical Plan: Counselling on Diet and Exercise done. (5) Annual physical exam: Code(s): Z00.00 - Encounter for general adult medical examination without abnormal findings Plan: History of Present Illness The patient is a 69-year-old female presenting for a annual physical examination. In addition she would like to discuss her osteoporosis management. She was diagnosed with osteoporosis following a DEXA scan in October and has seen an sand drier but found information confusing. She is not taking medications for osteoporosis and wishes to incorporate exercise and nutrition to manage her condition. The patient expressed challenges in maintaining weight post-trauma, aiming for a gradual weight loss by Komal, and links weight gain to dietary changes and familial stress. 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 - Family: with four children, two boys and two girls. One daughter resides in [place] with her oldest grandson. - Exercise: Engages in walking; interested in developing a safe weightlifting routine. - Nutrition: Following a diet with calcium and vitamin D3 supplements, aims to lose 20 pounds. - Family Responsibilities: Assists in caring for a [id number] grandson. Review of Systems - Musculoskeletal: Reports lower back discomfort, likely due to lifting grand son. Physical Exam General: Appearance normal, both eyes and all related structures Nutritional Appearance: Well nourished, patient is trying to lose 20 pounds Orientation/consciousness: Patient oriented x3 Limitations: No limitations, but patient reports lower back pain from lifting Head: Normal to inspection Neck: Normal visual inspection Chest: Normal palpation of entire chest wall Respiratory: Normal respiratory effort Neurology: Patient oriented x3 Results - Labs: Blood work ordered including thyroid function tests. - Tests: Awaiting results from DEXA scan for osteoporosis monitoring. Plan The management plan consists of maintaining vitamin D3 intake and introducing calcium supplements to support bone health. The patient is advised to engage in consistent low-impact physical activities like walking and light weightlifting to aid osteoporosis management and prevent further bone density loss. Blood work is scheduled, including thyroid testing, to address any concerns related to weight fluctuations. Dietary modifications, incorporating reduced sugars and carbohydrates, are recommended to aid weight reduction. 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 Patient was informed and verbally consented to the use of an ambient scribe for clinic note documentation during this visit. Discussion Notes I explained the importance of consistent calcium and vitamin D intake within osteoporosis management and advised on safe exercise practices to support bone density. We discussed the implications of weight changes post-trauma and strategies to facilitate a realistic weight loss goal. I recommended involving a resident athletic trainer or physical therapist to structure a safe weightlifting regime that considers her back pain. We outlined dietary strategies, focusing on reducing sugar and carbohydrate intake, and reinforced the need for a balanced approach to nutrition with a calorie goal of 1200 to 1500 per day. Follow-up discussions will address the progress with dietary changes and physical activity. Patient Instructions - Continue vitamin D3 supplementation, integrate calcium supplements. - Engage in regular walking and light weightlifting for osteoporosis management. - Follow calorie guidelines ([id number] daily); reduce sugars and carbs. - Schedule gym resident athletic trainer consultation for safe exercise guidance. - Complete the ordered blood work including thyroid function test. - Monitor back pain; consider physical therapy if discomfort persists. - Schedule follow-up in six months or sooner if concerns arise. Orders: Orders Rubella IgG Antibody Today I10 - Essential (primary) hypertension, Z11.9 - Encounter for screening for infectious and parasitic diseases, unspecified Lipid Panel Today I10 - Essential (primary) hypertension UA and rflx microscopic Today I10 - Essential (primary) hypertension Thyroid Stimulating Hormone Today I10 - Essential (primary) hypertension Erythrocyte Sedimentation Rate Today I10 - Essential (primary) hypertension PT Evaluation and Treatment Today M54.50 - Low back pain, unspecified Rubeola IgG (Measles) Today I10 - Essential (primary) hypertension, Z11.9 - Encounter for screening for infectious and parasitic diseases, unspecified Mumps Virus IgG Antibody Today I10 - Essential (primary) hypertension, Z11.9 - Encounter for screening for infectious and parasitic diseases, unspecified Complete Blood Count no Diff Today I10 - Essential (primary) hypertension Basic Metabolic Panel Today I10 - Essential (primary) hypertension Liver Panel Today I10 - Essential (primary) hypertension
[2024-04-22 11:37] VITALS: BP 130/72; PULSE 78; TEMP 36.3; O2SAT 99; BMI 27.7
== END 2024-04-22 12:02 | disposition home or self-care (01) ==
LOC: HO.HMCSH 11:25
PROVIDERS: PCP Internal Medicine; Visit Provider Internal Medicine
DX: I10 Essential (primary) hypertension (principal); M54.50 Low back pain, unspecified; M81.0 Age-related osteoporosis without current pathological fracture; E66.811 Obesity, class 1; Z00.00 Encounter for general adult medical examination without abnormal findings

== ENCOUNTER → 2024-04-22 11:25 | Outpatient (BNVA) | payer MEDICARE, SELFPAY | PROVIDERS: PCP Internal Medicine; Visit Provider Internal Medicine | DX: I10 Essential (primary) hypertension (principal); M54.50 Low back pain, unspecified; M81.0 Age-related osteoporosis without current pathological fracture; E66.811 Obesity, class 1; Z68.27 Body mass index [BMI] 27.0-27.9, adult; Z71.3 Dietary counseling and surveillance | CPT/HCPCS: 99202 ==

== ENCOUNTER 2024-05-01 07:21 | Outpatient (REF) | payer MEDICARE, SELFPAY ==
[2024-05-01 10:12] LABS: Appearance Urine Clear; Color Urine Yellow; Glucose Urine UA Negative (Negative); Leukocyte Esterase Urine Small (1+) (Negative); Nitrite Urine Negative (Negative); Specific Gravity - Urine 1.015 (1.005-1.025); UMIC TRIGGER UA YES; Urine Blood Negative (Negative); Urine Ketones Negative (Negative); Urine Protein Negative (Neg-Trace)
[2024-05-01 10:14] LABS: Hematocrit 40.7 % (37.0-47.0); Hemoglobin 13.7 g/dl (12.0-16.0); Mean Corpuscular HGB Conc 33.7 g/dl (31.0-35.0); Mean Corpuscular Hemoglobin 31.6 pg (27.0-33.0); Mean Corpuscular Volume 93.8 fL (80.0-98.0); Mean Platelet Volume 10.2 fL (9.4-12.3); Platelet Count 238 X10*3/uL (160-400); Red Blood Count 4.34 X10*6/uL (4.20-5.50); Red Cell Distribution Width 13.2 % (11.0-16.0); White Blood Count 4.5 X10*3/uL (4.8-10.8)
[2024-05-01 10:18] LABS: Bacteria Urine 1+ (None Seen); Hyaline Casts Urine 0-2 /LPF (0-2); RBC Urine 0-2 /HPF (0-2)
[2024-05-01 10:31] LABS: Alanine Aminotransferase 18 U/L (0-31); Albumin Level 4.1 g/dL (3.5-5.0); Alkaline Phosphatase 101 U/L (39-117); Anion Gap 11 (12-20); Aspartate Amino Transferase 23 U/L (5-31); Bilirubin Direct 0.1 mg/dL (0.0-0.5); Bilirubin Total 0.3 mg/dL (0.0-1.0); Blood Urea Nitrogen 16 mg/dL (9-16); Calcium 9.5 mg/dL (8.4-10.2); Carbon Dioxide 24 mmol/L (22-29); Chloride 111 mmol/L (96-108); Cholesterol 231 mg/dL (<200); Estimated Glomerular Filt Rate > 60; Glucose Random 82 mg/dL (60-115); HDL Cholesterol 82 mg/dL (>40); LDL Cholesterol Calculated 139 mg/dL (<100); Potassium 4.1 mmol/L (3.3-5.1); Sodium 142 mmol/L (135-145); Total Protein 7.1 g/dL (6.5-8.0); Triglycerides 50 mg/dL (<150)
[2024-05-01 10:47] LABS: Thyroid Stimulating Hormone 2.33 uIU/mL (0.32-4.0)
[2024-05-01 10:53] LABS: Erythrocyte Sedimentation Rate 10 MM/HR (0-20)
[2024-05-02 09:09] LABS: Rubeola IgG (Measles) >300.00 AU/mL
[2024-05-02 13:29] LABS: Rubella IgG Antibody 9.64 Index
== END 2024-05-01 07:22 | disposition home or self-care (01) ==
LOC: HO.HMGCLDS 07:21
PROVIDERS: PCP Internal Medicine; Visit Provider Internal Medicine
DX: Z11.9 Encounter for screening for infectious and parasitic diseases, unspecified (principal); I10 Essential (primary) hypertension
CPT/HCPCS: 36415; 80048; 80061; 80076; 81001; 84443; 85027; 85652; 86735; 86762; 86765

== ENCOUNTER 2024-06-20 08:00 | Outpatient (RCR) | payer MEDICARE, SELFPAY ==
--- NOTE | 2024-05-20 08:31 | MHC.PT.EP ---
[facility] [place] [facility] [place] [facility] [place] [facility] [address] Tesha Alaniz [address] [phone] F: [phone] F: [phone] F: [phone] F: [phone] Physical Therapy Plan of Care Date of Evaluation: 05/20/24 Date of Surgery: n/a Diagnosis: low back pain Assessment: Patient is a 69 year old female presenting to PT with complaints of pain in her low back. Pt reports onset of pain began about 2 months ago due to lifting grandson. She presents today with impairments in pain, lumbar ROM, hip strength, core strength, posture. Pt's current occupation is none, with baseline physical activities including ambulating, stair negotiation, ADLs, taking care of grandkids. 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 Clinical presentation today is most consistent with signs and sx associated with low back pain and pt will benefit from skilled PT 2 week x 4 weeks to address the following problems and impairments noted upon evaluation: pain, lumbar ROM, hip strength, core strength, posture. These problems limit the patient with the following functional activities: ambulating, stair negotiation, ADLs, taking care of grandkids. The prescribed treatment plan of care is medically necessary. Co-morbidities of osteoporosis, HTN were identified and taken into considerations of plan of care. Pt was educated on HEP, role of PT, prognosis, POC. Frequency and Duration: The patient will be seen 2 x week x 4 weeks Short Term Goals: Pt will demonstrate improved PPT with good TAC in 2 weeks. Pt will demonstrate improved hip MMT strength by 1/3 grade in 2 weeks. Tack Puller Machine Goals: Pt will demonstrate ability to care for grandchild without pain in 4 weeks for return to PLOF. Pt will demonstrate ability to walk for prolonged periods with min to no pain in 4 weeks for return to PLOF. Treatment Plan: Modalities to reduce pain, spasms and effusion. Manual therapy to restore motion and function. Therapeutic exercise to improve strength and flexibility. Neuromuscular re-education for posture and balance. Therapeutic activities to return to functional activities of daily living. Electronically signed by: Cristiane Moore, PT, DPT, ATC Please sign and return to therapist. Thank you for your referral.
--- NOTE | 2024-08-04 07:54 | MHC.PT.DC ---
[facility] [place] [facility] [place] [facility] [place] [facility] [address] Tesha Alaniz [address] [phone] F: [phone] F: [phone] F: [phone] F: [phone] Physical Therapy Discharge Report Diagnosis: low back pain Date of Surgery: n/a Date of Evaluation: 05/20/24 Date of Discharge: 08/04/24 Treatments to Date: 3 Cancellations to Date: 2 No Shows to Date: 0 Discharge Status: Discharge Summary: Pt had been placed on 30 day hold. She has not returned since and therefore we will d/c per plan at last visit. Electronically signed by: Cristiane Moore, PT, DPT, ATC Please sign and return to therapist. Thank you for your referral.
== END 2024-08-04 07:55 | disposition home or self-care (01) ==
LOC: HO.PTCHIC 08:00
PROVIDERS: PCP Internal Medicine; Visit Provider Internal Medicine
DX: M54.50 Low back pain, unspecified (principal)
CPT/HCPCS: 97110; 97161

== ENCOUNTER 2024-06-21 08:20 | Outpatient (REF) | payer MEDICARE, SELFPAY | END 2024-06-21 08:21 | disposition home or self-care (01) | LOC: HO.MAMMO 08:20 | PROVIDERS: PCP Internal Medicine; Visit Provider Internal Medicine | DX: Z12.31 Encounter for screening mammogram for malignant neoplasm of breast (principal) | CPT/HCPCS: 77063; 77067 ==

== ENCOUNTER → 2024-06-21 08:30 | Outpatient (BNV) | payer MEDICARE, SELFPAY | PROVIDERS: PCP Internal Medicine; Visit Provider Internal Medicine | DX: Z12.31 Encounter for screening mammogram for malignant neoplasm of breast (principal) | CPT/HCPCS: 77063; 77067 ==

== ENCOUNTER 2024-10-28 10:15 | Outpatient (AMB) | payer MEDICARE, SELFPAY ==
--- NOTE | 2024-10-28 10:15 | MHC.PC.OV ---
Vital Signs 10/28/24 10:16 Height 5 ft 4.75 in Weight 166 lb BMI 27.8 BP 135/63 Respiration 14 Pulse 82 Pulse Source Pulse Oximeter Temp 97.8 F Temp Source Temporal Artery Scan Pulse Oximetry (%) 99 Oxygen Delivery Method Room Air Intake Visit Reasons: 6 month f/u Second Ride Fare Collector Required: No Accompanied by: Self / Same As Patient Allergies No Known Allergies Allergy (Verified 10/28/24 10:16) Tobacco use date assessed: 10/28/24 Fall risk assessment: No Falls in past year Last assessed Fall Risk: 10/28/24 Dental Screening Dental Screen Date: 10/28/24 Did you have a dental visit in the last 12 months?: Yes Did you have a dental problem in the last 6 months where you did not have access to dental care?: No Was dental information given to patient?: Patient has dentist [facility] Medical History (Updated 10/28/24 @ 10:34 by Williams Cosme MD) Hyperlipidemia Obesity (BMI 30.0-34.9) Osteoporosis Essential hypertension History of high blood pressure Surgical History History of colonoscopy (~10/31/17) Social History (Updated 10/28/24 @ 10:24 by DAWNA Vincent) Housing: House Alcohol intake: current Alcohol intake frequency: holidays/special occasions only Patient Tobacco Use Status: Former Tobacco user service: No Current occupational status: retired Cognitive needs: No Hearing needs: No Vision needs: Yes (rx glasses) Questionnaire PHQ-9 Over the last 2 weeks, how often have you been bothered by any of the following problems? 1. Little interest or pleasure in doing things: not at all 2. Feeling down, depressed, or hopeless: not at all 3. Trouble falling or staying asleep, or sleeping too much: not at all 4. Feeling tired or having little energy: not at all 5. Poor appetite or overeating: not at all 6. Feeling bad about yourself - or that you are a failure or have let yourself or your family down: not at all 7. Trouble concentrating on things, such as reading the newspaper or watching television: not at all 8. Moving or speaking so slowly that other people could have noticed. Or the opposite - being so fidgety or restless that you have been moving around a lot more than usual: not at all 9. Thoughts that you would be better off or of hurting yourself in some way: not at all Total score: 0 Source: Developed by Drs. David Ballard, Megan Luis, Kyle Wong and colleagues, with an educational fernando from [email or web address]. Thrive Questionnaire Date Thrive assessed: 10/28/24 I am a: Patient What is your living situation today?: I have a steady place to live Within the past 12 months, did the food you bought not last and you didn't have the money to get more?: Never true Within the past 12 months, did you worry whether your food would run out before you got money to buy more?: Never true Do you have trouble paying for medicines?: No Do you have trouble getting transportation to medical appointments?: No Do you have trouble paying your heating and electricity bill?: No Do you have trouble taking care of your child, family member or friend?: No Do you have trouble with day-to-day activities such as bathing, preparing meals, shopping, managing finances, etc.?: No Are you currently unemployed and looking for a job?: No Are you interested in more education?: No Please select the resources that you would like help with: None THRIVE Score: 0 AUDIT C Alcohol Use Questionnaire (AUDIT-C) 1. How often do you have a drink containing alcohol?: Monthly or less 2. How many drinks containing alcohol do you have on a typical day when you are drinking?: 1 or 2 3. How often do you have six or more drinks on one occasion?: Never Total Score: 1 ALEX-7 AMB Questionnaire ALEX-7 Date ALEX - 7 assessed: 10/28/24 Feeling nervous, anxious, or on edge: 0 = Not at all Not being able to stop or control worryin = Not at all Worrying too much about different things: 0 = Not at all Trouble relaxin = Not at all Being so restless that it is hard to sit still: 0 = Not at all Becoming easily annoyed or irritable: 0 = Not at all Feeling afraid as if something awful might happen: 0 = Not at all Total ALEX-7 score (0-4 normal; 5-9 mild; 10-14 moderate; 15-21 severe): 0 Source: Developed by Drs. David Ballard, Megan Luis, Kyle Wong and colleagues, with an educational fernando from [email or web address]. Physical exam (Primary Care) Vital Signs: Last Vital Signs Temp 97.8 F 10/28/24 10:16 Pulse 82 10/28/24 10:16 Resp 14 10/28/24 10:16 BP 135/63 10/28/24 10:16 Pulse Ox 99 10/28/24 10:16 Oxygen Delivery Method Room Air 10/28/24 10:16 BMI result Body Mass Index 27.8 Tobacco/Smoking Status: Tobacco use Status Tobacco use date assessed 10/28/24 10/28/24 10:17 Patient Tobacco Use Status Former Tobacco user 10/28/24 10:24 PHQ-9: PHQ-9 Score PHQ-9: Total score 0 10/28/24 10:17 Thrive Assessment: Date of Thrive Assessment Date Thrive assessed 10/28/24 10/28/24 10:17 Coding Level of Care Code Est Pt Level 4 (30506) Complex EM visit Add On G2211 Diagnoses Hyperlipidemia E78.5 Assessment & Plan Assessment & Plan (1) Hyperlipidemia: Code(s): E78.5 - Hyperlipidemia, unspecified Category: Medical Plan: Fasting lipid panel ordered. Medication will be adjusted accordingly. Plan History of Present Illness - The patient is a 69-year-old female presenting with osteoarthritis of the knee and hyperlipidemia. - Osteoarthritis of the knee: Reports chronic knee pain, worsened by a fall two years ago, with minimal cartilage remaining and two prior cortisone injections. - Hyperlipidemia: Diagnosed with elevated cholesterol in April, currently managed with statin therapy, and requires follow-up testing. - Osteopenia: Engages in calcium supplementation and weight-bearing exercises for bone health. Social History - The patient lives with her and is able to drive independently, although she prefers not to drive at night. - She engages in regular physical activity, including weightlifting and walking, as part of her health maintenance routine. Review of Systems - Musculoskeletal: Reports chronic knee pain, sometimes exacerbated by walking. - Cardiovascular: Denies chest pain or syncope. - Gastrointestinal: Denies abdominal pain. - Neurological: Denies hearing issues. Physical Exam General: Cooperative and healthy appearing Nutritional Appearance: Well nourished Orientation/consciousness: Patient oriented x3 Limitations: No limitations Head: Normal to inspection General: Appearance normal, both eyes and all related structures Neck: Normal visual inspection Chest: Normal palpation of entire chest wall Respiratory: N ormal respiratory effort Neurology: Patient oriented x3, able to drive on own, drives at night but does not like to, hearing is okay. Results - Labs: Previous cholesterol test in April showed LDL at 139 mg/dL. Plan 1. Osteoarthritis Of The Knee - Follow up with orthopedist for knee pain management. 2. Hyperlipidemia - Continue statin therapy and repeat fasting cholesterol test. 3. Osteopenia - Maintain calcium and vitamin supplementation and exercise regimen. Discussion Notes During the visit, we discussed the management of osteoarthritis of the knee, including the plan to see an orthopedist for further evaluation. We also reviewed the patient's hyperlipidemia management, emphasizing the importance of continuing statin therapy and repeating the fasting cholesterol test to assess treatment efficacy. Additionally, we talked about the patient's osteopenia and the need to continue calcium supplementation and weight-bearing exercises to support bone health. Patient Instructions - Schedule an appointment with the orthopedist for knee evaluation. - Continue taking statin medication as prescribed. - Repeat fasting cholesterol test as instructed. - Maintain calcium and vitamin D and K supplementation. - Engage in regular weight-bearing exercises. Orders: Orders Lipid Panel Today E78.5 - Hyperlipidemia, unspecified Medications: New alprazolam 0.5 mg PO DAILY PRN 30 tabs 0RF anxiety Refilled atorvastatin 10 mg PO BEDTIME 90 tabs 1RF
[2024-10-28 10:16] VITALS: BP 135/63; PULSE 82; RESP 14; TEMP 36.6; O2SAT 99; BMI 27.8
--- OUTSIDE RECORDS SUMMARY | 2024-10-28 11:57 | XMS_ITS | Clinical Summary ---
Author Organization [facility] Address [address] [place] [id number] Phone Care Team Providers Care Salt Miner Name Role Phone Mariam Hope SAFETY INSTRUCTION POLICE OFFICER Unavailable [phone] David Sousa DO Primary Care Provider Allergies No known active allergies Medications amLODIPine (NORVASC) 10 MG tablet Take 10 mg by mouth daily. 07/30/2023 Active ALPRAZolam (XANAX) 0.5 MG tablet Take 0.5 mg by mouth daily as needed. Active Active Problems Problem Noted Date Diagnosed Date Age-related osteoporosis wit hout current pathological fracture 03/04/2024 Assessment & Plan (03/04/2024 10:17 AM EST): 69 yo post-menopausal woman with osteoporosis of spine on bone density. She has no history of fracture. Her calcium intake has likely been low-jana. Her bone density in the spine is significantly lower than that of the hip. She has historically been fairly active. Reviewed normal bone physiology across the lifespan. Reviewed role of adequate calcium & vitamin D, weight-bearing exercise, avoiding falls and pharmacologic rx with risks/benefits. Advised her to refer to UpToDate patient information @ calcium & vitamin D & prevention and treatment of osteoporosis, beyond the basics for additional information. Will do testing for secondary causes. She will work on optimizing lifestyle. She prefers to monitor without pharmacologic therapy for now. Pending results of testing, if all ok, would plan on repeat bone density in 2 yrs. Weight gain 03/04/2024 Assessment & Plan (03/04/2024 10:13 AM EST): Will check TFTs. Essential hypertension Social History Tobacco Use Types Packs/Day Years Used Date Smoking Tobacco: Never Smokeless Tobacco: Never Tobacco Cessation:Counseling Given: Not Answered Alcohol Use Standard Drinks/Week Comments Yes 0 (1 standard drink = 0.6 oz pur e alcohol) Education Answer Date Recorded Are you interested in more education? Not on megan e 06/17/2022 Are you concerned about learning? Not on file 06/17/2022 No 06/17/2022 No 06/17/2022 Digital Access Answer Date Recorded No 07/16/2022 No 07/16/2022 Reliable internet access at home? Not on file 07/16/2022 Device with a working camera? Not on file Comments Unknown Sex and Gender Information Value Date Recorded Sex Assigned at Female 05/14/2021 6:17 PM EDT Legal Sex Female 11:35 AM EST Gender Identity Female 05/14/2021 6:17 PM EDT Sexual Orientation Straight 05/14/2021 6: 17 PM EDT Last Filed Vital Signs Vital Sign Reading Time Taken Comments Blood Pressure 130/70 03/04/2024 9:02 AM EST Pulse 100 03/04/2024 9:02 AM EST Temperature 36.4 C (97.6 F) 03/04/2024 9:02 AM EST Respiratory Rate 13 03/04/2024 9:02 AM EST Oxygen Saturation 96% 03/04/2024 9:02 AM EST Inhaled Oxygen Concentration - - Weight 75.2 kg (165 lb 12.8 oz) 03/04/2024 9:02 AM EST Height 167 cm (5' 5.75 ) 03/04/2024 9:02 AM EST Body Mass Index 26.97 03/04/2024 9:02 AM EST Plan of Treatment Health Maintenance Due Date Last Done Comments LIPID PANEL 1956 DEPRESSION SCREENING 1968 HEPATITIS C SCREENING 01/21/1974 MAMMOGRAM 1996 COLOGUARD 01/21/2001 COLONOSCOPY 01/21/2001 COLORECTAL CANCER SCREENING 01/21/2001 FIT TEST 01/21/2001 FOBT 01/21/2001 SIGMOIDOSCOPY 01/21/2001 VIRTUAL COLONOSCOPY 01/21/2001 ZOSTER VACCINES (1 of 2) 01/21/2006 BLOOD PRESSURE 09/01/2024 03/04/2024 INFLUENZA VACCINE (#1) 2024 , 11/10/2021, 12/09/2020, Additional history exists COVID-19 VACCINE (2024- season) 2024 11/22/2022, 01/09/2022, 07/05/2021, Additional history exists SCREENING FOR DIABETES 03/04/2027 03/04/2024 Adult Td,Tdap Booster 11/14/2027 11/13/2017 PNEUMOCOCCAL VACCINES (50+ years) Completed 01/09/2022 RSV VACCINE Completed 2023 OSTEOPOROSIS SCREENING INITIAL (ONE-TIME) Completed 10/09/2023 SMOKING STATUS SCREENING (Once After 26 Yrs) Completed 03/04/2024 HEPATITIS A VACCINES Aged Out No long er eligible based on patient's age to complete this topic HIB VACCINES Aged Out No longer eligi ble based on patient's age to complete this topic MENINGOCOCCAL VACCINES (ACWY) Aged Out No longer eligible based on patient's age to complete this topic MENINGOCOCCAL VACCINES (B) Aged Out N o longer eligible based on patient's age to complete this topic Medical Devices Not on file Procedures Procedure Name Priority Date/Time Associated Diagnosis Comments OUTSIDE BONE DENSITY SCREENING Routine 10/09/2023 from Last 3 Months or Most Recently Relevant to Health Maintenance Results * OUTSIDE BONE DENSITY SCREENING (10/09/2023) Pathologist [facility] BONE DENSITY SCREENING - EXTERNAL osteoporosis Historical Provider HEALTH MAINTENANCE Final Result from Last 3 Months or Most Recently Relevant to Health Maintenance Insurance MEDICARE PART A & B [employer] MEDEX SUPPLEMENT MEDICARE PART A & B [employer] MEDEX SUPPLEMENT MEDICARE PART A & B Member Subscriber Plan / Payer (Ef fective 2021-) Name:Cristal Ramos Member ID:[id number] Relation to Subscriber:Self Name:Cristal Ramos Subscriber ID:[id number] Payer ID:[id number] Group ID:Not on file Type:Medicare Address: [employer] [address] [place] [phone] [employer] MEDEX SUPPLEMENT MEDICARE PART A & B [employer] MEDEX SUPPLEMENT MEDICARE PART A & B [employer] MEDEX SUPPLEMENT MEDICARE PART A & B [employer] MEDEX SUPPLEMENT MEDICARE PART A & B [employer] SUPPLEMENT MEDICARE PART A & B [employer] MEDEX SUPPLEMENT MEDICARE PART A & B [employer] MEDEX SUPPLEMENT Care Teams Salt Miner Relationship Specialty Start Date End Date David Sousa DO [address] [place] [phone] PCP - General Internal Medicine 03/07/24 Mariam Hope NP [address] [place] [phone] Nurse Practitioner 03/04/24 Additional Source Comments The information contained in this document represents components of the legal health record. It is not the complete legal health record.[facility]
== END 2024-10-28 10:40 | disposition home or self-care (01) ==
LOC: HO.HMCSH 10:15
PROVIDERS: PCP Internal Medicine; Visit Provider Internal Medicine
DX: E78.5 Hyperlipidemia, unspecified (principal)

== ENCOUNTER → 2024-10-28 10:15 | Outpatient (BNVA) | payer MEDICARE, SELFPAY | PROVIDERS: PCP Internal Medicine; Visit Provider Internal Medicine | DX: I10 Essential (primary) hypertension (principal); E78.5 Hyperlipidemia, unspecified; M17.10 Unilateral primary osteoarthritis, unspecified knee; M85.80 Other specified disorders of bone density and structure, unspecified site | CPT/HCPCS: 96127; 99212 ==

== ENCOUNTER 2024-10-31 06:41 | Outpatient (REF) | payer MEDICARE, SELFPAY ==
--- OUTSIDE RECORDS SUMMARY | 2024-10-31 06:45 | XMS_ITS | Clinical Summary ---
Author Organization [facility] Address [address] [place] [phone] Phone Care Team Providers Care Bull Chain Operator Name Role Phone Mariam Hope PRESALES SENIOR SPECIALIST Unavailable [phone] David Sousa DO Primary Care Provider Allergies [...] * OUTSIDE BONE DENSITY SCREENING (10/09/2023) Pathologist [facility] BONE DENSITY SCREENING - EXTERNAL osteoporosis Historical Provider HEALTH MAINTENANCE Final Result from Last 3 Months or Most Recently Relevant to Health Maintenance Insurance MEDICARE PART A & B [employer] CROSS MEDEX SUPPLEMENT MEDICARE PART A & B [employer] MEDEX SUPPLEMENT MEDICARE PART A & B Member Subscriber Plan / Payer (Ef fective 2021-) Name:Cristal Ramos Member ID:[id number] Relation to Subscriber:Self Name:Cristal Ramos Subscriber ID:[id number] Payer ID:[id number] Group ID:Not on file Type:Medicare Address: [employer] [address] [place] [phone] [employer]ified MEDEX SUPPLEMENT MEDICARE PART A & B [employer]ified MEDEX SUPPLEMENT MEDICARE PART A & B [employer]ified MEDEX SUPPLEMENT MEDICARE PART A & B Riskified MEDEX SUPPLEMENT MEDICARE PART A & B [employer] SUPPLEMENT MEDICARE PART A & B Riskified MEDEX SUPPLEMENT MEDICARE PART A & B Riskified MEDEX SUPPLEMENT Care Teams Bull Chain Operator Relationship Specialty Start Date End Date David Sousa DO [address] [place] [phone] PCP - General Internal Medicine 03/07/24 Mariam Hope NP [address] [place] [id number] Nurse Practitioner 03/04/24 Additional Source Comments The information contained in this document represents components of the legal health record. It is not the complete legal health record.[facility]
[2024-10-31 11:00] LABS: Cholesterol 173 mg/dL (<200); HDL Cholesterol 76 mg/dL (>40); Triglycerides 57 mg/dL (<150)
== END 2024-10-31 06:42 | disposition home or self-care (01) ==
LOC: HO.HMGCLDS 06:41
PROVIDERS: PCP Internal Medicine; Visit Provider Internal Medicine
DX: E78.5 Hyperlipidemia, unspecified (principal)
CPT/HCPCS: 36415; 80061

== ENCOUNTER 2024-11-13 14:04 | Outpatient (AMB) | payer MEDICARE, SELFPAY ==
--- NOTE | 2024-11-13 14:36 | MHC.OFFVIS ---
Intake Visit Reasons: OV- right knee pain last inj 02/11/24 Intake Note: Cristal is a 69 year old female who presents today for a repeat injection for her right knee, last injection 02/11/24. Patient states had mild relief wiht her last injection. She would like to talk about repeating the injection first. Allergies No Known Allergies Allergy (Verified 10/28/24 10:16) HPI HPI OV- right knee pain last inj 02/11/24: Details: Ms. Ramos is a 69-year-old female who presents to the office today for chronic right knee pain. She states that when she made the appointment she was having pain but at this time her pain has resolved. I last cortisone injection was 02/11/2024. [facility] Medical History (Updated 10/28/24 @ 10:34 by Williams Cosme MD) Hyperlipidemia Obesity (BMI 30.0-34.9) Osteoporosis Essential hypertension History of high blood pressure Surgical History History of colonoscopy (~10/31/17) Social History (Updated 10/28/24 @ 10:24 by DAWNA Vincent) Housing: House Alcohol intake: current Alcohol intake frequency: holidays/special occasions only Patient Tobacco Use Status: Former Tobacco user service: No Current occupational status: retired Cognitive needs: No Hearing needs: No Vision needs: Yes (rx glasses) Review of Systems Const All systems reviewed & are unremarkable except as noted in HPI and below Physical Exam Const General: cooperative, healthy appearing and no acute distress Resp Effort & Inspection: normal respiratory effort and able to speak in complete sentences Extrem Other: Right knee mild effusion. Patient is able to demonstrate active range of motion 0-90 degrees. NVI. Psych Appearance: grossly normal Mental Status: mental status grossly normal Attitude: cooperative Assessment & Plan Assessment & Plan (1) Osteoarthritis of right knee: Code(s): M17.11 - Unilateral primary osteoarthritis, right knee Category: Medical Plan Ms. Ramos is a 69-year-old female who presents to the office today for chronic right knee pain. She states that when she made the appointment she was having pain but at this time her pain has resolved. Her last cortisone injection was 02/11/2024. I have sent the patient a prescription for Celebrex to the pharmacy that she can take as needed for inflammation. She did inquire about gel injections in which we did discuss the possibility in the future of petition the insurance company for coverage. As she is not experiencing any pain at this time cortisone injection has been deferred at this time as well as gel injections. She will follow up PRN, sooner if needed. Medications: New celecoxib (Celebrex) 200 mg PO BID 60 caps 0RF 30 days Discontinued amlodipine Discontinued Reason: Patient no longer taking 5 mg PO DAILY 90 tabs 1RF Coding Level of Care Code Est Pt Level 3 (09889) Diagnoses Osteoarthritis of right knee M17.11
--- OUTSIDE RECORDS SUMMARY | 2024-11-13 18:33 | XMS_ITS | Clinical Summary ---
Author Organization [facility] Address [address] [place] [phone] Phone Care Team Providers Care Photo Editor Name Role Phone Mariam Hope SUPERVISOR [employer] Unavailable [phone] David Sousa DO Primary Care Provider Allergies [...] * OUTSIDE BONE DENSITY SCREENING (10/09/2023) Pathologist [facility] BONE DENSITY SCREENING - EXTERNAL osteoporosis Historical Provider HEALTH MAINTENANCE Final Result from Last 3 Months or Most Recently Relevant to Health Maintenance Insurance MEDICARE PART A & B [employer]OSS MEDEX SUPPLEMENT MEDICARE PART A & B [employer] MEDEX SUPPLEMENT MEDICARE PART A & B Member Subscriber Plan / Payer (Ef fective 2021-) Name:Cristal Ramos Member ID:[id number] Relation to Subscriber:Self Name:Cristal Ramos Subscriber ID:[id number] Payer ID:[id number] Group ID:Not on file Type:Medicare Address: [employer] [address] [place] [phone] [employer] MEDEX SUPPLEMENT MEDICARE PART A & B [employer] MEDEX SUPPLEMENT MEDICARE PART A & B [employer] MEDEX SUPPLEMENT MEDICARE PART A & B [employer] MEDEX SUPPLEMENT MEDICARE PART A & B [employer] SUPPLEMENT MEDICARE PART A & B [employer] MEDEX SUPPLEMENT MEDICARE PART A & B [employer] MEDEX SUPPLEMENT Care Teams Photo Editor Relationship Specialty Start Date End Date David Sousa DO [address] [place] [phone] PCP - General Internal Medicine 03/07/24 Mariam Hope NP [address] [place] [phone] Nurse Practitioner 03/04/24 Additional Source Comments The information contained in this document represents components of the legal health record. It is not the complete legal health record.[facility]
== END 2024-11-13 14:54 | disposition home or self-care (01) ==
LOC: HO.HOS 14:04
PROVIDERS: PCP Internal Medicine; Visit Provider Physician Assistant
DX: M17.11 Unilateral primary osteoarthritis, right knee (principal)
CPT/HCPCS: 99213

== ENCOUNTER → 2024-11-13 14:04 | Outpatient (BNVA) | payer MEDICARE, SELFPAY | PROVIDERS: PCP Internal Medicine; Visit Provider Physician Assistant | DX: M17.11 Unilateral primary osteoarthritis, right knee (principal) | CPT/HCPCS: 99212 ==